=== PATIENT | female | born 1955 | race Caucasian/White ===

== ENCOUNTER 2022-04-03 05:20 | Observation (INO) ==
--- NOTE | 2022-03-10 13:45 | PAT Medication Instructions ---
Medication Instructions Date of Service March 10, 2022 Home Medications fexofenadine 180 mg tablet 180 mg PO QPM fluticasone propionate 50 mcg/actuation nasal spray,suspension (Flonase Allergy Relief) 1 spray intranasal DAILY multivitamin 1 tab PO QPM albuterol sulfate 90 mcg/actuation aerosol inhaler 1 inh inhalation QID PRN alendronate 70 mg tablet (Fosamax) 70 mg PO WK clarithromycin 500 mg tablet 500 mg PO UD PRN glucosamine sulf dipot chlr,msm,chond 550 mg-C 30 mg-cedric 1 mg capsule (Glucosamine Chondroitin) 1 cap PO QPM mometasone-formoterol HFA 200 mcg-5 mcg/actuation aerosol inhaler (Dulera) 2 puff inhalation BID PRN montelukast 10 mg tablet (Singulair) 10 mg PO QPM icnbneou-kor-epuioq 5 mg-zeaxanth 1 mg-bilberry 7.5 mg-herbal capsule (Macular Health Formula) 1 cap PO QPM prednisone 10 mg tablets in a dose pack 10 mg PO UD PRN Continue as directed alendronate 70 mg tablet (Fosamax) 70 mg PO WK (do not take day of surgery) clarithromycin 500 mg tablet 500 mg PO UD PRN(if needed) prednisone 10 mg tablets in a dose pack 10 mg PO UD PRN(if needed) STOP taking 2 weeks before surgery (or as soon as possible if surgery is within 2 weeks) glucosamine sulf dipot chlr,msm,chond 550 mg-C 30 mg-cedric 1 mg capsule (Glucosamine Chondroitin) 1 cap PO QPM plnxjelh-zoi-qbscec 5 mg-zeaxanth 1 mg-bilberry 7.5 mg-herbal capsule (Macular Health Formula) 1 cap PO QPM Take morning of surgery With a small sip of water, OTHERWISE NOTHING TO EAT OR DRINK AFTER MIDNIGHT: fluticasone propionate 50 mcg/actuation nasal spray,suspension (Flonase Allergy Relief) 1 spray intranasal DAILY albuterol sulfate 90 mcg/actuation aerosol inhaler 1 inh inhalation QID PRN(use if needed; please bring with you to hospital day of surgery if possible) mometasone-formoterol HFA 200 mcg-5 mcg/actuation aerosol inhaler (Dulera) 2 puff inhalation BID PRN(if needed) Take evening before surgery fexofenadine 180 mg tablet 180 mg PO QPM multivitamin 1 tab PO QPM albuterol sulfate 90 mcg/actuation aerosol inhaler 1 inh inhalation QID PRN(if needed) mometasone-formoterol HFA 200 mcg-5 mcg/actuation aerosol inhaler (Dulera) 2 puff inhalation BID PRN(if needed) montelukast 10 mg tablet (Singulair) 10 mg PO QPM Other Notes If you have any questions please call us at [phone] or [phone] or [phone] or [phone]
--- NOTE | 2022-03-18 12:35 | Anesthesiology Consultation ---
Date of Service March 18, 2022 Assessment & Plan (1) Encounter for pre-operative examination: - COVID screening: Per assessment on 03/18: No known COVID-19 positive contacts or current COVID-19 related symptoms. Travel screen negative. Patient vaccinated. At surgeon discretion if preop Covid testing being done. - Outpatient joint assessment: Pt currently scheduled for inpatient pathway. If surgeon requests review for outpatient joint pathway, patient is an acceptable candidate for outpatient joint program from anesthesia standpoint pending surgeon's office assessment that patient is motivated, has good support and completes Same Day Joint Program preop requirements. Chart Review Chart Review: Acceptable Risk for Surgery and Patient seen in Pre Admission Testing Teaching & Discussion Pre-Anesthesia Teaching/Discussion Notes: Instructed NPO after midnight before surgery,except medications with 15 cc of water. Medication instructions provided according to the PAT guidelines. History Surgery Operation Date: 04/03/22 09:15 Proposed Procedures p Left Anterior Total Hip Arthroplasty - Vahid Llanos DO Height/Weight Height: 5 ft 10 in Weight: 76.5 kg Allergies Allergy/AdvReac Type Severity Reaction Status Date / Time gluten Allergy Intermediate Celiac Verified 03/17/22 10:24 disease minocycline Allergy Unknown Noted on Verified 03/17/22 10:24 [facility] records per patient- unknown reaction Medications Home Medications Medication Instructions Recorded Confirmed Last Taken fexofenadine 180 mg tablet 180 mg PO QPM 12/30/21 03/04/22 Unknown fluticasone propionate 50 1 spray intranasal DAILY 12/30/21 03/04/22 Unknown mcg/actuation nasal spray,suspension (Flonase Allergy Relief) multivitamin 1 tab PO QPM 12/30/21 03/04/22 Unknown albuterol sulfate 90 mcg/actuation 1 inh inhalation QID PRN SOB 03/04/22 03/04/22 Unknown aerosol inhaler alendronate 70 mg tablet (Fosamax) 70 mg PO WK 03/04/22 03/04/22 Unknown clarithromycin 500 mg tablet 500 mg PO UD PRN RESCUE KIT FOR 03/04/22 03/04/22 Unknown SINUS INFECTION glucosamine sulf dipot 1 cap PO QPM 03/04/22 03/04/22 Unknown chlr,msm,chond 550 mg-C 30 mg-cedric 1 mg capsule (Glucosamine Chondroitin) mometasone-formoterol HFA 200 2 puff inhalation BID PRN SOB 03/04/22 03/04/22 Unknown mcg-5 mcg/actuation aerosol inhaler (Dulera) montelukast 10 mg tablet 10 mg PO QPM 03/04/22 03/04/22 Unknown (Singulair) vralrfly-xbq-hqghqg 5 mg-zeaxanth 1 cap PO QPM 03/04/22 03/04/22 Unknown 1 mg-bilberry 7.5 mg-herbal capsule ([facility] Formula) prednisone 10 mg tablets in a dose 10 mg PO UD PRN RESCUE FOR SINUS 03/04/22 03/04/22 Unknown pack INFECTION FLARE UP Past Medical History Medical History Asthma Celiac disease History of COVID-19 02/2021 > resolved Hx of migraines Macular degeneration Osteoarthritis Temporomandibular joint disorder No locking Exercise / Class Metabolic Activity II 4-5 Yardwork/Stairs/Walk up hill Past Family History Family History Other No family history of adverse response to anesthesia Past Surgical History Surgical History History of arthroscopy RT KNEE History of section x1 History of colonoscopy History of esophagogastroduodenoscopy (EGD) History of tonsillectomy and adenoidectomy History of tooth extraction Past Anesthesia History No Hx of Anesthesia Complications and No Family Hx of Anesthesia Complications History of PONV No Hx of PONV and Hx of Motion Sickness Social History Smoking Status: Never smoker Hx Alcohol Use: Yes Alcohol type: wine alcohol intake frequency: a few times a week substance use type: does not use Review of Systems Patient denies chest pain, shortness of breath, dyspnea on exertion, fever, chills, cough, wheezing, palpitations. Physical Exam Vital Signs VITALS BP 117/87 P 76 TEMP 98.3 SP02 100%RA RESP 18 PHYSICAL Full cervical extension range of motion. Full TMJ range of motion. TMD 3 finger breaths Mallampati Score 1 Dentition: intact, + implant (molar) Lungs: clear throughout to auscultation Cardiac: regular rate and rhythm, no murmurs noted Spine: normal Carotid arteries: negative bruit Extremities: no edema Lab Results Anesthesia Preop Results Results Anesthesia Widget: WBC 3.69 K/ul (4.8-10.8) L 03/18/22 Hgb 13.9 g/dl (12.0-16.0) 03/18/22 Hct 40.5 % (34.1-44.9) 03/18/22 Plt 212 K/uL (130-400) 03/18/22 Na 139 mmol/L (136-145) 03/18/22 K 3.8 mmol/L (3.5-5.1) 03/18/22 Cl 103 mmol/L (98-107) 03/18/22 CO2 29 mmol/L (21-32) 03/18/22 BUN 10 mg/dl (6-23) 03/18/22 Creat 0.70 mg/dl (0.6-1.2) 03/18/22 Glucose Level 82 mg/dl (70-99(Fasting)) 03/18/22 PT 10.8 Seconds (9.0-12.0) 03/18/22 PTT 28.6 Seconds (21.0-31.0) 03/18/22 INR 1.0 (0.9-1.1) 03/18/22 Blood Type A Negative 03/18/22 Antibody Screen NEGATIVE 03/18/22 Testing Electrocardiogram Date: 03/18/22 Findings: + NSR @ (68) Chest X-Ray Date: 03/18/22 FINDINGS: No lines and tubes are seen. The cardiomediastinal silhouette is normal. The lungs are clear. No evidence of pleural effusion or pneumothorax. IMPRESSION: No acute chest disease. COVID-19 Risk Screen Screening Information COVID-19 Screen Date: 03/18/22 Exposure 21 Days Family/Household +COVID Last 21 Days: No Exposure 10 Days Any COVID Exposure Last 10 Days: No Symptoms Last 10 Days Experienced COVID Sx Last 10 Days: No + COVID 0-90 Days COVID + in Last 0-90 Days: No
[2022-04-03] MEDS ORDERED: TRANEXAMIC ACID 1,000 MG **IV Pre-op IV SCH (06:00)
[2022-04-03] MEDS ORDERED: ACETAMINOPHEN 500 MG TAB PO SCH (06:00)
[2022-04-03] MEDS ORDERED: TRANEXAMIC ACID 1,000 MG **IV Intra-op IV SCH (06:00)
[2022-04-03] MEDS ORDERED: LR 60ML/HR IV SCH (06:00)
[2022-04-03] MEDS ORDERED: ORTHO JOINT MIX INFIL SCH (06:00)
[2022-04-03] MEDS ORDERED: LR 500ML BOLUS, THEN 15ML/HR IV SCH (06:00)
[2022-04-03] MEDS ORDERED: ceFAZolin 2000MG 2,000 MG/15 ML SYR IV SCH (06:00)
[2022-04-03] MEDS ORDERED: FAMOTIDINE 20 MG TAB PO SCH (06:00)
[2022-04-03] MEDS ORDERED: dexAMETHasone 4 MG TAB PO SCH (06:00)
[2022-04-03] MEDS ORDERED: GABAPENTIN 300 MG CAP PO SCH (06:00)
[2022-04-03] MEDS ORDERED: BUPIVACAINE 0.5 % 5 MG/1 ML PF 10ML VIAL ONE (06:26)
[2022-04-03] MEDS ORDERED: ORTHO JOINT ANESTHETIC ONE (06:36)
--- NOTE | 2022-04-03 06:36 | History & Physical Report ---
Date of Service April 03, 2022 Assessment & Plan (1) Osteoarthritis of left hip: We will proceed with a left anterior total of arthroplasty. Postoperatively she will be started on aspirin for DVT prophylaxis and kept overnight in the hospital for postoperative medical management. She plans to use energy physical therapy upon discharge. History of Present Illness Chief Complaint: Osteoarthritis of the left hip. Primary Care Provider: Mateo Carvajal MD Corazon is a pleasant 66-year-old female who has been dealing with increasing left hip pain. All of her pain is located in her groin. She examines very much like arthritis of the hip. She had an intraarticular hip injection, which took care of all of her symptoms briefly as well.The x-rays did not look too bad. I sent her for an MRI of her hip. MRI showed moderate to severe arthritis. After failing conservative treatment, she elected proceed with a left anterior total of arthroplasty. Allergies Allergy/AdvReac Type Severity Reaction Status Date / Time gluten Allergy Intermediate Celiac Verified 04/03/22 05:45 disease minocycline Allergy Unknown Noted on Verified 04/03/22 05:45 [facility] records per patient- unknown reaction Home Medications Medication Instructions Recorded Confirmed Type fexofenadine 180 mg tablet 180 mg PO QPM 12/30/21 04/03/22 History fluticasone propionate 50 1 spray intranasal DAILY 12/30/21 04/03/22 History mcg/actuation nasal spray,suspension (Flonase Allergy Relief) multivitamin 1 tab PO QPM 12/30/21 04/03/22 History albuterol sulfate 90 mcg/actuation 1 inh inhalation QID PRN SOB 03/04/22 04/03/22 History aerosol inhaler alendronate 70 mg tablet (Fosamax) 70 mg PO WK 03/04/22 04/03/22 History clarithromycin 500 mg tablet 500 mg PO UD PRN RESCUE KIT FOR 03/04/22 04/03/22 History SINUS INFECTION glucosamine sulf dipot 1 cap PO QPM 03/04/22 04/03/22 History chlr,msm,chond 550 mg-C 30 mg-cedric 1 mg capsule (Glucosamine Chondroitin) mometasone-formoterol HFA 200 2 puff inhalation BID PRN SOB 03/04/22 04/03/22 History mcg-5 mcg/actuation aerosol inhaler (Dulera) montelukast 10 mg tablet 10 mg PO QPM 03/04/22 04/03/22 History (Singulair) fyfryowf-pdj-ghdgod 5 mg-zeaxanth 1 cap PO QPM 03/04/22 04/03/22 History 1 mg-bilberry 7.5 mg-herbal capsule (Macular Health Formula) prednisone 10 mg tablets in a dose 10 mg PO UD PRN RESCUE FOR SINUS 03/04/22 04/03/22 History pack INFECTION FLARE UP Past Med/Surg History Medical History Asthma Celiac disease History of COVID-19 02/2021 > resolved Hx of migraines Macular degeneration Osteoarthritis Temporomandibular joint disorder No locking Surgical History History of arthroscopy RT KNEE History of section x1 History of colonoscopy History of esophagogastroduodenoscopy (EGD) History of tonsillectomy and adenoidectomy History of tooth extraction Family History Other No family history of adverse response to anesthesia Social History Smoking Status: Never smoker Second Hand Exposure: Yes ( A CHILD); Hx Alcohol Use: Yes Alcohol type: wine Preferred Language: Dominican Cell Operation Supervisor Required: No Beliefs That Will Affect Care: None Current Living Situation: Spouse Feels Safe at Home: Yes Safety Concerns: Feels Safe At This Time Assistive Devices: Contacts and Glasses Review of Systems All systems reviewed & are unremarkable except as noted in HPI & below. Physical Exam On physical examination of her left hip, she has decent range of motion with 100 degrees of flexion, 20 degrees of internal rotation and 40 degrees of external rotation. She has pain in her groin with forced internal rotation.. Constitutional WD/WN, vitals as above Eyes PERRL, conjunctivae normal, anicteric sclerae ENMT external ear and nose normal, oropharynx normal Neck trachea midline, no thyromegaly Respiratory normal respiratory effort, lungs clear to auscultation Cardiovascular RRR, no murmur, no edema Gastrointestinal (Abdomen) normal bowel sounds, soft, nontender, no hepatosplenomegaly Skin no rashes, warm and dry Psychiatric A+Ox3, euthymic affect Results & Data Results & Data Laboratory Results . Diagnostic Findings X-rays of the left hip show some mild to moderate osteoarthritis. MRI of the left hip was shows moderate to severe osteoarthritis of the left hip joint.. PG Care Time/CCT Total # of Minutes Spent Total Time Spent with Patient: Total time spent is greater than 50% in coordination of care (as documented) at patient's floor/unit and/or counseling patient: Coding Level of Care Code None Diagnoses Osteoarthritis of left hip M16.12
[2022-04-03] MEDS ORDERED: MIDAZOLAM HCL 1 MG/ML 2ML VIAL ONE (06:38)
[2022-04-03] MEDS ORDERED: fentaNYL citrate 100 MCG/2 ML VIAL ONE (06:38)
[2022-04-03] MEDS ORDERED: fentaNYL citrate 100 MCG/2 ML VIAL IV PRN (06:40)
[2022-04-03] MEDS ORDERED: ePHEDrine sulfate 50 MG/ML AMP IV PRN (06:40)
[2022-04-03] MEDS ORDERED: ATROPINE SULFATE 0.1 MG/ML 10ML SYR IV PRN (06:40)
[2022-04-03] MEDS ORDERED: ONDANSETRON INJ 2 MG/ML 2 ML VIAL IV PRN ×2 (06:40→09:56)
--- NOTE | 2022-04-03 08:07 | Operative Report ---
PG Post Operative Report Pre & Post Diagnosis Operation Date: 04/03/22 07:00 Pre-Op Diagnosis: Degenerative joint disease left hip Post-Op Diagnosis: Degenerative joint disease left hip I identified the patient and participated in the time-out.: Yes Procedure Operation Date: 04/03/22 07:00 Actual Procedures p Left Anterior Total Hip Arthroplasty(Left) - Vahid Llanos DO Surgeon Vahid Llanos DO Supervisor Cell Efficiency Vahid [place], PAC Estimated Blood Loss 200 Findings Consistent with Post-Op Diagnosis Specimens Left femoral head Description of Procedure Implants used I used a [employer]immer[employer] total hip arthroplasty system with a size 5 high offset Avenir Complete stem, a 48 mm G7 cup with a 25mm screw, an E1 polyethylene timoteo er, a 32 mm ceramic head with a +3.5 neck. Corazon arrived at the hospital for the above procedure. She was seen in the preoperative holding area and the operative extremity was identified and signed. She was given a spinal anesthetic, a preoperative antibiotic, and TXA. She was then taken back to the operating room and laid on the table in the supine position. She was given basic sedation. The operative leg was secured to a Puristst leg positioner. The hip was then prepped and draped in sterile fashion. A timeout was done and the patient and the operative extremity was properly identified. An anterior approach was used. Dissection was taken down through the fascia and the tensor muscle belly was retracted laterally and the rectus was retracted medially. The circumflex vessels were identified and ligated. The capsule was then incised and tagged for later repair. The femoral neck was then cut and the femoral head was removed. The acetabulum was exposed. Time was spent doing a complete circumferential labral release. Sequential reaming of the acetabulum up to a size 4748 reamer was done. Final reamings were done under fluoroscopy to ensure appropriate version. A Biomet mm G7 cup was then impacted into place. A single 25 mm screw was placed. The E1 polyethylene liner was then snapped into place. Surrounding soft tissues were then injected with 100 cc of an orthopedic pain control cocktail. The proximal femur was then exposed. Sequential broaching up to a size 5 high offset broach was done. Off that broach a size 32 head with a +3.5 neck was trialed. The hip was reduced and fluoroscopic images showed anatomic alignment of the implants in acceptable length. The broach was removed. The final size 5 high offset Avenir Complete stem was then impacted into place. A ceramic 32 mm head with a +3.5 neck was then impacted onto the stem and the hip was reduced. Final fluoroscopic images showed anatomic alignment of the hip. The capsule was then closed with #1 Vicryl suture. A dilute betadyne lavage was then done for 3 minutes. The joint was then irrigated with normal saline solution. The fascia was closed with #1 PDS suture. Skin was closed with 2-0 Vicryl, ally, and a Silverlon dressing. She was then transferred to a hospital bed and taken to the post anesthesia care unit in stable condition. She tolerated the procedure well. Vahid España PA-C, was present for the entire procedure. He was critical for patient positioning, prepping, draping, retraction exposure, wound closure and application of sterile dressing. I attest to the content of the Intraoperative Record and any orders documented therein. Any exceptions are noted below.
[2022-04-03] MEDS ORDERED: LIDOCAINE 2% MPF LOCAL 5 ML VIAL INFIL ONE (08:14)
[2022-04-03] MEDS ORDERED: ONDANSETRON INJ 2 MG/ML 2 ML VIAL ONE (08:14)
--- NOTE | 2022-04-03 09:33 | XRay Report ---
AP PELVIS, CROSSTABLE LATERAL LEFT HIP History: Left total hip arthroplasty. Degenerative arthritis. Postop. FINDINGS: The patient is status post a left total hip arthroplasty. The hardware is intact. No fractu re or dislocation. Skin ally are in place. IMPRESSION: Left total hip arthroplasty. No evidence for hardware complication. ACT 112: Negative or not required by law. Electronically signed by: Mac Cummins M.D. 04/03/2022 9:32 AM
--- NOTE | 2022-04-03 09:52 | Fluoroscopy Report ---
FL hip LT 1V CLINICAL HISTORY: Left anterior total hip arthroplasty COMPARISON STUDY: None. FLUOROSCOPY TIME: 18 seconds FLUOROSCOPY IMAGES: 1 Ka, r: 1.4 mGy FINDINGS: Left total arthroplasty. The hardware appears intact. No fracture or dislocation. IMPRESSION: Fluoroscopic assistance as above. ACT 112: Negative or not required by law. Electronically signed by: Mac Cummins M.D. 04/03/2022 9:51 AM
[2022-04-03] MEDS ORDERED: NALOXONE HCL 0.4 MG/1 ML VIAL/CARP IV PRN (09:56)
[2022-04-03] MEDS ORDERED: ALBUTEROL HFA 8 GM INHALER INH PRN (09:56)
[2022-04-03] MEDS ORDERED: METOCLOPRAMIDE HCL INJ 5 MG/ML 2 ML VIAL IV PRN (09:56)
[2022-04-03] MEDS ORDERED: MAGNESIUM HYDROXIDE SUSP 30 ML UDC PO PRN (09:56)
[2022-04-03] MEDS ORDERED: HYDROmorphone INJ 0.5 MG/0.5 ML SYR IV PRN (09:56)
[2022-04-03] MEDS ORDERED: bisacodyL 10 MG SUPP PR PRN (09:56)
--- NOTE | 2022-04-03 10:24 | Anesthesiology Progress Note ---
Date of Service April 03, 2022 Anesthesia Post Procedure Vital Signs Vital Signs: Temp Pulse Resp BP Pulse Ox O2 Del Method O2 Flow Rate 04/03/22 10:15 98.2 F 71 18 106/61 98 Room Air 04/03/22 09:45 97.7 F 63 18 108/67 98 Room Air 04/03/22 09:05 64 18 100/70 99 Room Air 04/03/22 08:55 63 15 95/63 L 100 Room Air 04/03/22 08:45 64 16 108/76 100 Oxymask 2 04/03/22 09:29 97.5 F L 62 18 115/60 100 Room Air 04/03/22 09:15 97.5 F L 61 18 114/59 L 99 Room Air 04/03/22 08:35 61 15 109/59 L 99 Oxymask 3 04/03/22 08:27 97.7 F 66 16 99/55 L 98 Oxymask 5 04/03/22 05:48 98.1 F 73 20 150/78 H 97 Room Air Pain Intensity Left Hip: Pain Intensity: 0 Transfer of Care Handoff Completed per policy Notes Mental Status: alert / awake / arousable and participated in evaluation Patient Amnestic to Procedure: Yes Nausea / Vomiting: adequately controlled Pain: adequately controlled Airway Patency, RR, SpO2: stable & adequate BP & HR: stable & adequate Hydration State: stable & adequate Neuraxial Anesthesia: was administered and sensory block is resolving Anesthetic Complications: no major complications apparent and Pt Satisfied with anesthetic care
[2022-04-03] MEDS ORDERED: FLUTICASONE/VILANTEROL 200/25MCG 14 PUFFS/INHALER INH PRN (10:27)
[2022-04-03] MEDS: DOCUSATE SODIUM 100 MG CAP PO SCH ×2 (11:56→21:13)
[2022-04-03] MEDS: MULTIVITAMIN TAB PO SCH (11:57)
[2022-04-03] MEDS: ASPIRIN 81 MG ECTAB PO SCH ×2 (11:58→21:22)
[2022-04-03] MEDS: SODIUM CHLORIDE 0.9% 1000ML 1,000 ML IV SCH ×2 (12:00→21:54)
[2022-04-03] MEDS: FLUTICASONE PROPIONATE NA SPR 16 GM BTL NAE SCH (12:00)
[2022-04-03] MEDS: KETOROLAC 30 MG/ML VIAL IV SCH ×3 (12:01→21:15)
[2022-04-03] MEDS: ACETAMINOPHEN 500 MG TAB PO SCH ×2 (17:02→22:59)
[2022-04-03] MEDS: ceFAZolin 2000MG 2,000 MG/15 ML SYR IV SCH ×2 (17:16→22:59)
[2022-04-03] MEDS ORDERED: FEXOFENADINE HCL 180 MG TAB PO SCH (21:00)
[2022-04-03] MEDS ORDERED: CEROVITE ADV FORMULA TAB PO SCH (21:00)
[2022-04-03] MEDS ORDERED: MONTELUKAST SODIUM 10 MG TABLET PO SCH (21:00)
[2022-04-03] MEDS ORDERED: SENNA 8.6 MG TAB PO SCH (21:00)
[2022-04-03] MEDS: oxyCODONE HCL IR 5 MG TAB (IMMEDIATE RELEASE) PO PRN (21:14)
[2022-04-04] MEDS: KETOROLAC 30 MG/ML VIAL IV SCH ×2 (04:29→10:57)
[2022-04-04] MEDS: SODIUM CHLORIDE 0.9% 1000ML 1,000 ML IV SCH (05:59)
[2022-04-04] MEDS: ACETAMINOPHEN 500 MG TAB PO SCH (06:05)
[2022-04-04] MEDS: oxyCODONE HCL IR 5 MG TAB (IMMEDIATE RELEASE) PO PRN ×2 (06:06→11:10)
--- NOTE | 2022-04-04 07:25 | Orthopedic Progress Note ---
Date of Service April 04, 2022 Assessment & Plan (1) Status post left hip replacement: Overall she is doing fairly well. She will be seen by physical therapy today for ambulation and range of motion exercises. She is on aspirin for DVT prophylaxis. She can be discharged home later today. She will follow-up with orthopedics in 2 weeks. Andrew Chandra was seen and examined at bedside this morning. Overall she is doing fairly well. She is having some soreness in her hip. She has been up and ambulating to the bathroom. She has no complaints.. Review of Systems All systems reviewed & are unremarkable except as noted in HPI & below. Physical Exam On physical examination of her left hip, the dressing is clean and dry. Her leg is out full extension. She has active dorsiflexion plantarflexion of the left ankle.. Results & Data Results & Data Laboratory Results . Diagnostic Findings Postoperative x-rays of the left hip show the prosthesis to be in anatomic alignment without any evidence of fracture, screws, or loosening.. PG Care Time/CCT Total # of Minutes Spent Total Time Spent with Patient: Total time spent is greater than 50% in coordination of care (as documented) at patient's floor/unit and/or counseling patient: Coding Level of Care Code 58588 Post Operative Follow-Up Diagnoses Status post left hip replacement Z96.642
--- NOTE | 2022-04-04 07:26 | Discharge Summary ---
Date of Service April 04, 2022 Admission HPI (Per Admitting) Corazon is a pleasant 66-year-old female who has been dealing with increasing left hip pain. All of her pain is located in her groin. She examines very much like arthritis of the hip. She had an intraarticular hip injection, which took care of all of her symptoms briefly as well.The x-rays did not look too bad. I sent her for an MRI of her hip. MRI showed moderate to severe arthritis. After failing conservative treatment, she elected proceed with a left anterior total of arthroplasty. Admission Exam (Per Admitting) On physical examination of her left hip, she has decent range of motion with 100 degrees of flexion, 20 degrees of internal rotation and 40 degrees of external rotation. She has pain in her groin with forced internal rotation.. Principal Diagnosis Same as "Discharge Diagnosis" noted below under Discharge Instructions. Discharge Exam On physical examination of her left hip, the dressing is clean and dry. Her leg is out full extension. She has active dorsiflexion plantarflexion of the left ankle.. Discharge Data Procedures Performed Operation Date: 04/03/22 07:00 Actual Procedures p Left Anterior Total Hip Arthroplasty(Left) - Vahid Llanos DO Ordered Studies 04/03/22 FL hip LT 1V Routine Hospital Course (1) Status post left hip replacement: On April 03, 2022 Corazon arrived at [facility] and underwent a left hip replaced without complication. She had a spinal anesthetic. Postoperatively she was started on aspirin for DVT prophylaxis and transferred to the general orthopedic floors. Her hospital course was uneventful. On postop day #1, her vital signs were stable and her pain was well controlled. She was able to participate well with physical therapy doing ambulation and range of motion exercises. She was then discharged home. She will follow-up with orthopedics in 2 weeks. PG Care Time/CCT Total # of Minutes Spent Total Time Spent with Patient: Total time spent is greater than 50% in coordination of care (as documented) at patient's floor/unit and/or counseling patient: Discharge Plan Discharge Items Patient Disposition: Home - Home Health Services Reason For Visit: DJD Left Hip Discharge Diagnosis: Left hip replacement Activity: Per Instructions section Non-emergency contact: Surgeon Call non-emergency contact if: your wound has increased redness and your wound has increased drainage Follow-up/Referrals: Mateo Carvajal MD [Primary Care Provider] - Diet: Regular Addtl Attending Provider Instructions: Activity and Therapy Recommendations: * If you are using [facility] then therapy will be provided at your home until they feel you have accomplished all of your goals. * If you are using [facility] then Physical Therapy will be provided until they feel you are ready to start Outpatient Physical Therapy. * If you are not using home therapy then Outpatient Physical Therapy should start about 3-5 days from your day of surgery. Therapy will last about 6-10 weeks * You were shown a series of exercises in the hospital. Do these exercises three times each day including the exercises you were shown in physical therapy. * Get up and walk several times each day.~ For the first four weeks, try not to stand or walk for more than one hour at a time. If you do stand or walk for more than one hour, you will not hurt anything, but your leg will likely swell.~~ * As you feel comfortable, you may change from the walker or crutches to a cane and~then to independent walking. Medications: * Narcotic You will likely be sent home from the hospital with a prescription for the narcotic pain medication that worked best throughout your stay. * Aspirin Most patients will be required to take Aspirin 81mg twice a day for 6 weeks after surgery. This is obtained [id number] and a prescription is not necessary. * Other medications may be prescribed for specific circumstances. If you have any questions, please call the office at . * Resume previous home medications unless otherwise instructed TEDs/Elastic Stockings: The white elastic stockings help limit swelling and prevent blood clots from forming in your legs. The more you wear them, the more they work. Wear them for six weeks. Dressing Care: Leave the Silverlon dressing in place for 7 days. After 7 days you may remove the dressing. If the incision is not draining then you may leave the ally open to air. If there is a little bit of drainage or if the ally are getting stuck on your clothing then cover the incision with a dry dressing. The ally will be removed at your 2 week follow-up appointment. Showering: You may shower with the Silverlon dressing in place. Do not let the shower spray hit the dressing directly. Pat the Silverlon dressing dry. If the dressing becomes wet underneath, then simply remove the dressing. Keep the incision dry until you are 7 days out from the day of surgery. After 7 days you may remove the Silverlon dressing and shower with the ally exposed. Let soapy water run over the ally and pat them dry. Do not scrub or soak the incision. Things To Watch For: * Drainage from the incision site that occurs more than one week after your surgery. * Increased redness at the incision site. * Fever above 102 degrees Fahrenheit. * Unusual chest pain or shortness of breath. * Call [facility] at with any of the above problems Follow-Up Visit: Follow-up with Dr. Llanos's PA (Vahid España) 2-3 weeks after your day of surgery. He will remove your ally and answer any questions. If you have any additional questions or concerns, Dr Llanos is usually in the office at the same time and will be available An appointment was probably scheduled when you signed-up for surgery in the office. If you have any questions call Office Instructions: More detailed instructions as well as Frequently Asked Questions were provided in a folder by our office when you signed-up for surgery. Please review these instructions when you get home. If you have any further questions or concerns, please feel free to call the office at [phone] Pending Studies at Discharge: No Stand-Alone Forms: [facility], Smoking Cessation Medications and DC Order Prescriptions: New aspirin 81 mg Tablet,Delayed Release (Dr/Ec) 81 mg PO BID 42 Days Qty: 84 0RF oxycodone-acetaminophen 5-325 mg tablet 1 tab PO Q6H PRN (Reason: pain) Qty: 30 0RF Continued fluticasone propionate [Flonase Allergy Relief] 50 mcg/actuation sp ray,suspension 1 spray intranasal DAILY Rx Instructions: administer into each nostril fexofenadine 180 mg tablet 180 mg PO QPM multivitamin Tablet 1 tab PO QPM clarithromycin 500 mg Tablet 500 mg PO UD PRN (Reason: RESCUE KIT FOR SINUS INFECTION) prednisone 10 mg Tablets,Dose Pack 10 mg PO UD PRN (Reason: RESCUE FOR SINUS INFECTION FLARE UP) Macular Health Formula 5-1-7.5 mg Capsule 1 cap PO QPM Glucosamine Chondroitin 550-30-1 mg Capsule 1 cap PO QPM montelukast [Singulair] 10 mg Tablet 10 mg PO QPM albuterol sulfate 90 mcg/actuation Hfa Aerosol Inhaler 1 inh INHALATION QID PRN (Reason: SOB) alendronate [Fosamax] 70 mg Tablet 70 mg PO WK Label Comments: WED. Dulera 200-5 mcg/actuation Hfa Aerosol Inhaler 2 puff INHALATION BID PRN (Reason: SOB) Admission Data Admit Date/Time: 04/03/22 08:27 Attending Provider: Vahid Llanos Admit Provider: Vahid Llanos Primary Care Provider: Mateo Carvajal
[2022-04-04] MEDS ORDERED: dexAMETHasone 4 MG TAB PO SCH (08:00)
[2022-04-04] MEDS: DOCUSATE SODIUM 100 MG CAP PO SCH (10:55)
[2022-04-04] MEDS: ASPIRIN 81 MG ECTAB PO SCH (10:55)
[2022-04-04] MEDS: FLUTICASONE PROPIONATE NA SPR 16 GM BTL NAE SCH (10:56)
[2022-04-04] MEDS: MULTIVITAMIN TAB PO SCH (10:56)
[2022-04-08] MEDS ORDERED: ALENDRONATE SODIUM 70 MG TAB PO SCH (06:30)
== END 2022-04-04 12:02 | disposition home health service (06) ==
LOC: 3W 05:20 → ASU 05:20